=== PATIENT | male | born 2000 | race African-American/Black ===

== ENCOUNTER 2021-12-29 20:21 | Emergency (ER) | payer MEDICAID, SELFPAY ==
[2021-12-29] MEDS ORDERED: cefTRIAXone\\ROCEPHIN 1 GM VIAL ONE (21:31)
[2021-12-29] MEDS ORDERED: Lidocaine 1% (PF) 30 ML VIAL ONE (21:31)
[2021-12-30 18:24] LABS: Chlam.trachomatis by PCR,Urine DETECTED (NotDetected)
== END 2021-12-29 21:50 | disposition home or self-care (01) ==
LOC: MADERS 20:21
DX: N34.1 Nonspecific urethritis (principal)
CPT/HCPCS: 87491; 87591; 96372; 99283; J0696; J2001

== ENCOUNTER 2023-06-09 10:39 | Emergency (ER) | payer SELFPAY | END 2023-06-09 11:07 | disposition home or self-care (01) | LOC: MADERS 10:39 | DX: S60.221A Contusion of right hand, initial encounter (principal); S60.222A Contusion of left hand, initial encounter; W23.1XXA Caught, crushed, jammed, or pinched between stationary objects, initial encounter | CPT/HCPCS: 99283 ==